=== PATIENT | male | born 1960 | race Caucasian/White ===

== ENCOUNTER 2017-02-25 13:40 | Inpatient (IN) | payer OTHER ==
[~2017-02-25] VITALS: Ht 182.9 cm; Wt 115.7 kg
[~2017-02-25 13:40] MED LIST: NORCO 10-325 T1 EACH PO; PERCOCET 7.5-31 EACH PO
--- NOTE | 2017-03-15 15:25 | NUR ---
PREADMIT PT CARE NOTE THIS IS A 56 YEAR OLD MALE THAT ISS EMPLOYED. HE STATES HE IS SCHEDULED FOR A RIGHT TOTAL KNEE REPLACEMENT ON 03/25/[address] DILEEP NATHAN. LIVES IN ONE STORY HOME WITH . HOUSE WITH A COUPLE OF SUNKEN ROOMS (2 STEPS) INTO THEM. PT HAS A TUB/SHOWER COMBINATION, THAT HAS THE HANDICAPPED BARS THROUGHOUT THE BATHROOM. SAYS HE IS GOING TO GO TO [facility] TO OBTAIN A FRONT WHEELED WALKER AND A SEAT FOR THE SHOWER. STATES HE WENT TO [facility] FOR A PREOP VISIT. HE DENIES FURTHER QUESTIONS, OR CONCERNS AT THIS TIME. OTHER THAN THE STATEMENT THAT HE DOES NOT WANT A MALE NURSE OR THERAPIST. [facility] SELECTION CONSULTANTTOE PULLER CASE MANAGEMENT
--- NOTE | 2017-03-25 08:59 | NUR ---
03/25/17 0859 Erum Womack 0855 TO PACU, RESP EVEN UNLABORED. DENIES PAIN. 0859 ABLE TO MOVE BILAT TOES, MILD SENSATION TO L1.
--- NOTE | 2017-03-25 09:42 | NUR ---
PATIENT ARRIVES FROM PACU AND IS ALERT AND ORIENTED. PATIENT HAD A TOTAL RIGHT KNEE SURGERY. PATIENT CAN MOVE BOTH FEET AND HAS SENSATION IN BOTH FEET. PATIENT DENIES PAIN AT THIS TIME, BUT NOTES A SLIGHT PRESSURE LIKE FEELING AROUND THE KNEE. PATIENT HAS WANDER WRAP WITH CRYO CUFF. CONTINUE TO MONITOR CLOSELY. PT IREMAINS ON 2 L NC AND SP02 IS 92 %.
--- NOTE | 2017-03-25 11:54 | NUR ---
PATIENT ABLE TO TOLERATE EATING JELLO, PUDDING, AND BROTH WITHOUT DIFFICULTY. PT NOW RECEIVING HIS LUNCH TRAY. PT'S AT BEDSIDE. CRYO CUFF REMAINS ON. PT'S PAIN UNDER CONTROL.
--- NOTE | 2017-03-25 11:56 | NUR ---
RN with patient. Fresh ice water given. No needs at this time.
--- NOTE | 2017-03-25 14:00 | NUR ---
PATIENT RESTING IN BED. FRESH ICE WATER GIVEN. NO OTHER NEEDS AT THIS TIME. ASKED PATIENT TO TRY TO URNINATE AND TO CALL WHEN HE IS DONE TRYING. CALL BUTTON IN REACH.
--- NOTE | 2017-03-25 14:19 | NUR ---
PATIENT ATTEMTPS TO VOID AND ONLY ABLE TO VOID A FEW DRIBBLES OF URINE. PATIENT EDUCATED ON THE FACT THAT HE LIKELY NOW HAS AN OVEREXTENDED BLADDER AND WILL LIKELY NEED A MCGOVERN CATHETER FOR THE REST OF TODAY AND WILL BE TAKEN OUT IN THE AM. PATIENT WANTING TO TRY TO VOID ONE MORE TIME AND ALLOWED TO, BUT PLANNING ON PLACING MCGOVERN SOON. CONTINUE TO MONITOR.
--- NOTE | 2017-03-25 15:03 | NUR ---
MCGOVERN CATH PLACED AT 1500 AND DRAINED FOR 1250 ML. CONTINUE TO MONITOR.
--- NOTE | 2017-03-25 15:40 | NUR ---
DR. NATHAN CALLED TO UPDATE ON PATIENT'S INABILITY TO VOID AND MCGOVERN PLACEMENT. NO FURTHER ORDERS REC'D AT THIS TIME. PT RESTING COMFORABLY IN BED AND WAITNG FOR HIS DINNER. CONTINUE TO MONITOR.
--- NOTE | 2017-03-25 16:30 | NUR ---
RT WORKING WITH PATIENT IN ROOM.
--- NOTE | 2017-03-25 17:21 | NUR ---
PATIENT RESTING IN BED. FRESH ICE WATER GIVEN. ICE IN CRYO. CALL BUTTON IN REACH. NO OTHER NEEDS AT THIS TIME
--- NOTE | 2017-03-25 18:24 | NUR ---
PATIENT RESTING IN BED AT THIS TIME WITH HIS AND OTHER VISITOR AT BEDSIDE. PT DENIES PAIN. MCGOVERN EMPTIED FOR ADDITIONAL 300 ML. IVF CONTINUE AT 125 ML/HR. CYRO CUFF AND SCDs REMAIN ON.
--- NOTE | 2017-03-25 19:08 | NUR ---
BEDSIDE REPORT GIVEN TO JOSE LUIS WILEY. PT REMAINS ALERT, ORIENTED, AND PAIN FREE AT THIS TIME. PT INSTRUCTED TO CONTINUE USING CALL LIGHT.
--- NOTE | 2017-03-25 20:10 | NUR ---
PT LAYING IN BED, WATCHING TV, NO APPARENT DISTRESS, PLEASENT DEMEANOR. TEDS, SCD'S, CRYOCUFF, AND HEEL PROTECTORS IN PLACE. CONTINUOUS PULSE OXIMETER IN PLACE, AND INCENTIVE SPIROMETER AT BEDSIDE WHICH PT REPORTS USING TODAY. RATES PAIN AT 0/10, "THERE IS NONE." GAVE SCHEDULED PAIN MEDICATIONS. DRESSING TO RIGHT KNEE IS CLEAN DRY AND INTACT, NO SHADOWING AT THIS TIME. PT HAS BEEN USING CALL LIGHT APPROPRIATLY. DENIES NAUSEA. PT FRIENDLY AND COOPERATIVE. GAVE FRESH ICE WATER. CALL LIGHT IN REACH. NO NEEDS AT THIS TIME.
--- NOTE | 2017-03-25 21:43 | NUR ---
PT RESTING QUIELTY, NO NEEDS AT THIS TIME. CALL LIGHT IN REACH.
--- NOTE | 2017-03-25 23:42 | NUR ---
PT LAYING IN BED, WATCHING TV, LIGHTS ON IN ROOM. PT REPORTS THAT HE IS HAVING "A LITTLE BIT," OF PAIN. RATES PAIN AT 3-4/10, GAVE NORCO FOR PAIN. PT ALSO COMPLAINS OF PRURITIS, "I AM SO ITCHY ON MY STOMACK AND MY SIDE," GAVE BENEDRYL FOR ITCHING. TEDS, SCD'S, HEEL PROTECTORS, AND CRYO CUFF IN PLACE. RE-FILLED CRYO CUFF WITH ICE. GAVE FRESH ICE WATER. PT HAS CALL LIGHT. DENIES FURTHER NEEDS.
--- NOTE | 2017-03-26 00:12 | NUR ---
pt continues to complain of pruritis, states "its a little better, but its still itchy." gave benedryl 12.5mg iv for itching.
--- NOTE | 2017-03-26 02:30 | NUR ---
PT LAYING IN BED, WATCHING TV. PT REPORTS THAT HE HAS BEEN SLEEPING ON AND OFF, STATES "LUIS BEEN DOZING OFF AND ON." PT REPORTS PRURITIS IS "BETTER." RATES PAIN AT 3/10, STATES "ITS BARELY THERE." GAVE SCHEDULED PAIN MEDICATIONS. PT SBP 95. RN MANUALLY RE-ASSESSED, SBP 99; PT ASYMPTOMATIC, NO DIZZINESS, NO NAUSEA. GAVE FRESH ICE WATER. NO FURTHER NEEDS AT THIS TIME.
--- NOTE | 2017-03-26 03:34 | NUR ---
PT RESTING QUIELTY. O2 SAT 97% ON RA. LIGHTS AND TV OFF IN ROOM.
--- NOTE | 2017-03-26 04:59 | NUR ---
resting quielty. lights and tv off in room.
--- NOTE | 2017-03-26 05:40 | NUR ---
PT PRURITIS IS "BETTER" ACCORDING TO PT, BUT HE REQUESTED "ONE MORE" DOSE OF BENEDRYL, GAVE BENEDRYL 12.5MG IV FOR ITCHING. RATES PAIN AT 3/10, GAVE NORCO FOR PAIN. DC'D FROILAN JASON, PT TOLERATED WELL. PT USING INCENTIVE SPIROMETER THIS MORNING ALSO, GAVE MORE EDUCATION. PT HAS NO FURTHER NEEDS AT THIS TIME. CALL LIGHT IN REACH.
--- NOTE | 2017-03-26 05:40 | NUR ---
CRYO CUFF REFILLED.
--- NOTE | 2017-03-26 06:09 | NUR ---
PT CALLING OUT FROM BED. ASSISTED PT UP TO RESTROOM TO VOID, CHANGED ATTENDS. PT BACK IN BED. PT REMAINS CONFUSED AND ARGUMENTATIVE. GAVE DIET LEMON MILLE LACS SODA PER PT REQUEST. CALL LIGHT IN REACH. BED ALARM ACTIVE FOR SAFETY.
--- NOTE | 2017-03-26 06:26 | NUR ---
PT HAD UNEVENTFUL NIGHT, SLEPT MAJORITY OF SHIFT. DRESSING CLEAN DRY AND INTACT. ALL DR NATHAN ORDERS IN PLACE. PAIN WELL CONTROLLED WITH SCHEDULED AND PRN PAIN MEDICATIONS. BENEDRYL GIVEN X3 FOR PRURITIS, PT STATES "ITS BETTER," THIS MORNING. ALERT AND ORIENTED X4, COOPERATIVE, PLEASENT DEMEANOR. FROILAN DC'D THIS AM. SBP RAN IN THE UPPER 90'S OVERNIGHT, DR NATHAN NOTIFIED, OKAY TO LEAVE FLUIDS RUNNING.
--- NOTE | 2017-03-26 07:01 | NUR ---
PT RATES PAIN AT 4/10 STILL, STATES "THAT LAST PILL DIDNT REALLY DO THAT MUCH." GAVE SECOND NORCO FOR PAIN. PT ALSO STATES "ITS TOLERABLE, I JUST DONT WANT IT TO GET OUT OF CONTROL. IV INFUSING FLUIDS WNL.
--- NOTE | 2017-03-26 08:00 | NUR ---
PATIENT FROM BED TO CHAIR WITH ONE PERSON ASSIST WITH FWW. BED BATH DONE. ORAL CARE DONE. LINENES CHANGED. FRESH ICE WATER GIVEN. ICE IN CRYO. CALL BUTTON IN REACH. NO OTHER NEEDS AT THIS TIME.
--- NOTE | 2017-03-26 08:09 | OR ---
[facility] [address], [place] [address] Signed DATE OF OPERATION: 03/25/2017 SURGEON: Clem Hernandez MD PREOPERATIVE DIAGNOSIS: Severe degenerative joint disease, right knee. POSTOPERATIVE DIAGNOSIS: Severe degenerative joint disease, right knee. PROCEDURE PERFORMED: Right total knee arthroplasty with computer navigation. ASSISTANTS: 1. REINALDO Marrero. 2. IHSAN Duarte. Audra was present for the entire surgery and was critical for positioning, retraction and wound closure. ANESTHESIA: Spinal. BLOOD LOSS: Minimal. TOURNIQUET TIME: Approximately 77 minutes. IMPLANTS: [place] size 7 triathlon with 13 mm insert and 35 mm patella. BRIEF HISTORY: Dania is a 56-year-old gentleman with multiple operations in the past on his knee. He has developed severe osteoarthritis with large loose bodies posteriorly. Risks, benefits, and alternatives of operation were discussed after he failed conservative treatment. He elected to proceed. DESCRIPTION OF PROCEDURE: Once consent was obtained, he was taken to the operating room. After adequate Electronically Signed By: CLEM HERNANDEZ MD 03/26/17 0809 PATIENT NAME: DANIA STEPHENS OPERATIVE REPORT DATE OF : 58 PHYSICIAN: CLEM HERNANDEZ MD REPORT #: [id number] REPORT IS CONFIDENTIAL AND NOT TO BE RELEASED WITHOUT AUTHORIZATION [facility] [address] [place] [id number] Signed anesthesia, he was placed on operating room table, all downside pressure points well padded. A well-padded proximal thigh tourniquet was placed and the leg was prepped and draped in a standard sterile fashion. The leg was exsanguinated using Esmarch bandage. Tourniquet inflated to 250 mmHg. A standard curved incision anteriorly incorporated the most medial prior incision. This was carried through skin and subcutaneous tissue. Median parapatellar arthrotomy was performed. The infrapatellar fat pad was excised. The MCL was elevated to sleeve around the posterior medial corner. Anterior horns of the menisci were transected. There was a large loose body anteriorly that was removed. The knee was then flexed. The ACL was already completely gone. The navigation guide was pinned to the distal femur and the femur was registered with the computer. The distal femoral cutting guide was then pinned in neutral alignment and distal femoral cut was made. The distal femur was sized to 7. The AP cutting block was pinned in neutral alignment and the anterior-posterior chamfer cuts were made and all bone piece was removed as well as osteophytes. The attention was turned to proximal tibia. The navigation guide was again pinned and the tibia was registered with the computer. The cutting block was then pinned in neutral alignment and the distal proximal tibial cut was made with care taken to protect the patellar tendon and MCL. The bone was removed. The posterior osteophytes and loose bodies were removed. Three large loose bodies probably 2 to 3 cm in diameter removed from medial and lateral aspects. A small posterior release was performed. The flexion-extension gaps were sized, found to be symmetric at 13 mm. The trials were positioned and he was taken through range of motion and found to be stable. Patella was cut, sized and drilled for 35 patella. Again, all osteophytes were removed. The knee was flexed. The tibia was finished using the keel punch. The bone surfaces were pulse lavaged, packed with dry Ray-Hitesh. The cement was mixed and reached proper consistency. The antibiotic cement was placed on all implants and all bone surfaces. Tibia was impacted in position first and any remaining cement was removed. The polyethylene was snapped into position and the femur was impacted. Again, all excess cement was removed. The knee was extended and nicely loaded. The patella was clamped and again any excess cement was removed. The cement was allowed to harden. Once it hardened sufficiently, the knee was flexed and the remaining cement was removed using osteotomes. The knee was pulse lavaged at intervals throughout the procedure. A total of 3 L antibiotic irrigation was used. The periarticular soft tissues were injected with 100 mL ropivacaine and Toradol mixture. The arthrotomy was then closed using #2 Stratafix, subcutaneous tissue with #1 Stratafix and freddie for the skin. The knee was dressed with Mepilex Ag dressing, ABD and Altaf wrap. He tolerated the procedure well. All sponge, needle, and instrument counts were correct. Electronically Signed By: CLEM HERNANDEZ MD 03/26/17 0809 PATIENT NAME: DANIA STEPHENS OPERATIVE REPORT DATE OF : 58 PHYSICIAN: CLEM HERNANDEZ MD REPORT #: [id number] REPORT IS CONFIDENTIAL AND NOT TO BE RELEASED WITHOUT AUTHORIZATION [address] [address] Signed Clem Hernandez MD BA/MODL /[id number] Electronically Signed By: CLEM HERNANDEZ MD 03/26/17 0809 PATIENT NAME: DANIA STEPHENS OPERATIVE REPORT DATE OF : 58 PHYSICIAN: CLEM HERNANDEZ MD REPORT #: [id number] REPORT IS CONFIDENTIAL AND NOT TO BE RELEASED WITHOUT AUTHORIZATION
--- NOTE | 2017-03-26 09:09 | NUR ---
PT PAIN WELL CONTROLLED. 1PA WITH FWW TO BATHROOM THIS MORNING. DUE TO VOID. PASSING FLATUS. NO BM. MIRALAX GIVEN SCHEDULED. NO COMPLAINTS THIS MORNING. DRESSING C/D/I. NO DRAINAGE NOTED. CRYOCUFF IN PLACE.
--- NOTE | 2017-03-26 09:45 | NUR ---
PT ABLE TO URINATE 200ML INTO TOILET HAT. BACK TO BED NOW WITH CRYOCUFF AND SCDs IN PLACE. CALL LIGHT IN REACH.
--- NOTE | 2017-03-26 10:05 | NUR ---
PATIENT RESTING IN BE TALKING ON CELL PHONE FRESH ICE WATER GIVEN. CALL BUTTON IN REACH.
--- NOTE | 2017-03-26 11:59 | NUR ---
PATIENT RESTING IN BED WATCHING TV. JUST FINISHED LUNCH. ICE IN CYRO FRESH ICE WATER GIVEN. NO OTHER NEEDS AT THIS TIME. CALL BUTTON IN REACH.
--- NOTE | 2017-03-26 13:35 | NUR ---
PATIENT RESTING IN BED PLAYING ON CELL PHONE. CALL BUTTON IN REACH. NO OTHER NEEDS AT THIS TIME.
--- NOTE | 2017-03-26 14:28 | NUR ---
PT WATCHING TV, RESTING IN BED. HE WELCOMED ME IN, HAD GOOD CONVERSATION. HIS PAIN SEEMS WELL UNDER CONTROL. HE HAS JUST BATTLED CANCER, ALONG WITH HIS . HE STATED GOD IS TAKING CARE OF THEM, I AGREED. EXTENDED A BLESSING, WILL CONTINUE TO FOLLOW
--- NOTE | 2017-03-26 15:00 | NUR ---
PATIENT WORKING WITH PT.
--- NOTE | 2017-03-26 15:17 | NUR ---
PATIENT PULLED CALL CORD IN BATHROOM WHEN THIS GRADE SCHOOL TEACHER ENTERED THE ROOM THE PATIENT WAS ALREADY UP AND HAD WALKED TO THE BATHROOM DOOR WITH NO ASSIST. THIS GRADE SCHOOL TEACHER REMINDED HIM THAT HE IS TO NOT GET UP AND WALK WITH OUT AN EMPLOYEE ASSISTING HIM. THE PATIENT STATED THAT WE HAVE BEEN TEACHING HIM TO GET UP AND DOWN ON HIS OWN. I REMINDED HIM THAT HAS BEEN WITH ONE OF THE EMPLOYEES NEXT TO HIM. THE PATIENT STATED THAT HE WILL GET UP ON HIS OWN. THIS GRADE SCHOOL TEACHER TOLD HIM IF HE CONTINUES TO GET UP WITH OUT OUR ASSISTANCE THAT WE WILL HAVE TO MOVE HIM TO A CLOSER ROOM WHERE WE CAN SEE HIM. THE PATIENT STATED THAT HE "WILL REFUSE TO MOVE TO ANOTHER ROOM". THIS GRADE SCHOOL TEACHER TOLD HIM THAT ITS OUR POLICY FOR HIM TO HAVE ASSISTANCE WHILE WALKING. PATIENT ONCE AGAIN STATED THAT HE WILL REFUSED. PATIENT BACK TO BED. CRYO ON. BED ALARM ON. CHARGE NURSE NOTIFIED.
--- NOTE | 2017-03-26 15:27 | NUR ---
CHARGE NURSE IN TO TALK TO PATIENT.
--- NOTE | 2017-03-26 15:29 | NUR ---
PATIENT REFUSES ASSISTANCE IN BATHROOM. CLARIFIED WITH PATIENT, "I DON'T NEED HELP, I DON'T WANT PEOPLE LOOKING AT MY NAKED BUTT. I DON'T WANT ANYONE IN THE BATHROOM WITH ME, OR I'LL CHECK MYSELF OUT OF HERE." LET PATIENT KNOW THAT I WOULD DISCUSS WITH DR. NATHAN, THAT IT IS NOT SAFE FOR PATIENT TO BE STANDING IN BATHROOM ALONE. PATIENT AWARE THAT HE WOULD BE MOVED CLOSE TO NURSE STATION IN THE EVENT OF A FALL. BED ALARM IS CURRENTLY ON. MESSAGE LEFT ON DR. NATHAN CELL PHONE.
--- NOTE | 2017-03-26 16:41 | NUR ---
educated patient on safety percautions taken to prevent falls. PT FOUND TO BE STANDING AND AMBULATING TO BED AFTER PULLING CALL MCCALLUM (BEFORE STAFF CAN COME TO ROOM TO ASSIST HIM). EDUCATED ON REASONS FOR POLICY ON CALLING AND WAITING FOR ASSISTANCE DURING TRANSFERS. ASSURED PT WE WOULD TRY TO PROVIDE PRIVACY DURING BATHROOM USE AND MINIMIZE EXPOSURE. SAFETY IS OF HIGHEST CONCERN. PT UNDERSTOOD EDUCATION AND UNDERSTANDS INSTRUCTIONS ON HOW TO CALL FOR ASSISTANCE AND WAITING FOR STAFF TO HELP.
--- NOTE | 2017-03-26 16:55 | NUR ---
RN ASSISTING PATIENT FROM BATHROOM.
--- NOTE | 2017-03-26 18:00 | NUR ---
REGUALR DIET. SBA WITH FWW. CALLS APPROPRIATELY. EDUCATED ON IMPORTANCE OF HAVING SBA FOR TRANSFERS. WORKING WITH PHYSICAL THERAPY. NORCO X2. OXY/TORADOL SCHEDULED. URINATING WELL TODAY. IMPROVING IN ABILITY TO EMPTY BLADDER EASIER. D5NS+20KCL @ 125 INFUSING PER MD WISHES. MEPILEX/WANDER WRAP IN PLACE. C/D/I. CRYOCUFF ON. EXPECT DISCHARGE TOMORROW.
--- NOTE | 2017-03-26 18:20 | NUR ---
PATIENT RESTING IN BED. PATIENT APLOGIZED TO ME FOR REFUSING TO CALL FOR HELP EARLIER TODAY. CALL BUTTON IN REACH. ICE WATER GIVEN. ICE IN CRYO. NO OTHER NEEDS AT THIS TIME.
--- NOTE | 2017-03-26 19:38 | NUR ---
SPOKE WITH DR NATHAN IN REGARDS TO PT'S INCREASED PAIN TODAY. INCREASED OXYCODONE DOSE. ALSO, OKAY TO DC FLUIDS.
--- NOTE | 2017-03-26 20:48 | NUR ---
PT UP TO BATHROOM USING FWW AND STANDBY ASSIST. PT AMBULATING WELL AND STEADY ON FEET. PT BACK IN BED, TEDS, SCD'S, CRYO CUFF, HEEL PROTECTORS ALL IN PLACE. DRESSING TO RIGHT KNEE IS CLEAN DRY AND INTACT, NO SHADOWING VISIBLE. PT RATES PAIN AT 7/10, GAVE SCHEDULED PAIN MEDICATIONS, WILL MONITOR PAIN CLOSELY. DC'D FLUIDS, IV WNL AND FLUSHES WELL. FRESH ICE WATER AT BEDSIDE. CALL LIGHT IN REACH. NO FURTHER NEEDS.
--- NOTE | 2017-03-26 21:39 | NUR ---
PT CONTINUES TO COMPLAIN OF 7/10 PAIN, GAVE NORCO 2 TABS FOR PAIN. PT UP TO BATHROOM THEN BACK TO BED. ALL DR NATHAN ORDERS IN PLACE. PT PLEASENT, VERY TALKATIVE. NO FURTHER NEEDS. CALL LIGHT IN REACH.
--- NOTE | 2017-03-26 23:03 | NUR ---
PT UP TO BATHROOM AND THEN BACK IN BED, CONTINUES TO DO WELL WITH FWW AND STANDBY ASSIST. PT CALLING APPROPRIATLY. RATES PAIN AT 5/10, STATES "ITS GETTING BETTER NOW." PT HAS NO FURTHER NEEDS. CALL LIGHT IN REACH.
--- NOTE | 2017-03-26 23:16 | NUR ---
PATIENT CALLED TO USE THE BATHROOM. JUST NEED TO UNHOOKED SCDS, CRYO AND HEEL PROTECTOR. PATIENT WILL CALL WHEN HE IS DONE. PATIENT CALLED, NURSE JOSE LUIS WILEY HELPED PATIENT BACK TO BED.
--- NOTE | 2017-03-27 00:28 | NUR ---
PATIENT CALLED. WENT TO USE THE BATHROOM. PATIENT IS BACK IN BED. REFILLED CRYO AND ICE WATER.
--- NOTE | 2017-03-27 01:05 | NUR ---
PT BACK IN BED FROM BATHROOM. RATES PAIN AT 6/10, GAVE NORCO 2 TABS FOR PAIN.
--- NOTE | 2017-03-27 02:09 | NUR ---
pt reports that his pain is unchanged since the norco, continues to rate pain at 6/10. gave scheduled pain medications for pain.
--- NOTE | 2017-03-27 02:20 | NUR ---
DR NATHAN NOTIFIED OF PT'S UNCONTROLED PAIN. NEW PAIN MEDICATION ORDERS RECIEVED.
--- NOTE | 2017-03-27 03:11 | NUR ---
pt reports pain is "a little less intense," but continues to rate pain at 6/10. states "i just cant get it in a comfortable position." assisted pt move up in bed, and adjusted head of bed. also gave dilaudid po for pain. cryo cuff in place and is full of ice. call light in reach.
--- NOTE | 2017-03-27 03:47 | NUR ---
pt laying in bed, lights out for the first time tonight. pt still awake watching tv. no needs at this time. call light in reach.
--- NOTE | 2017-03-27 04:46 | NUR ---
pt appears to be sleeping. rr wnl and unlabored and he is snoring. lights out, tv on in room.
--- NOTE | 2017-03-27 05:32 | NUR ---
PT REPORTS PAIN AT "4-5"/10, HE ALSO STATES "ITS TOLERABLE NOW, AND I WAS ABLE TO GET SOME SLEEP." PT LAYING IN BED, WATCHING TV. NO DISTRESS AT THIS TIME.
--- NOTE | 2017-03-27 05:33 | NUR ---
PT PAIN DIFFICULT TO GET UNDER CONTROL FIRST HALF OF SHIFT, NEW PAIN MEDICATIONS ORDERED. PAIN "TOLERABLE" PER PT, AFTER DILAUDID PRN ADDED. PT ABLE TO SLEEP LATE SHIFT. UP TO BATHROOM TO VOID SEVERAL TIMES. PT VERY STEADY ON FEET, USES FWW WELL. PT COOPERATIVE. ALERT AND ORIENTED X4. DRESSING CLEAN DRY AND INTACT, NO SHADOWING. ALL DR NATHAN ORDERS IN PLACE OVER NIGHT. SL WNL AND FLUSHES WELL. USES CALL LIGHT APPROPRIATLY.
--- NOTE | 2017-03-27 06:53 | NUR ---
pt reports pain is feeling more tolerable. rates pain at 6/10 at the moment. gave dilaudid po for pain. re-filled cryo cuff with ice.
--- NOTE | 2017-03-27 07:10 | NUR ---
RN TO ASSIST PATIENT FROM BED TO BATHROOM.
--- NOTE | 2017-03-27 08:05 | NUR ---
PT AWAKE IN BED, EATING SMALL AMOUNT OF BREAKFAST. REPORTS THAT HE HASN'T NOTICED MUCH OF A DIFFERENCE AFTER ZOFRAN ADMINISTRATION BUT THAT HE IS "OK". RATING RIGHT KNEE PAIN 5-6/10, MEDICATED WITH SCHEDULED OXY AND TORADOL. RIGHT KNEE DRESSING CDI, NO SHADOWING NOTED. CRYO CUFF, JANETH HOSE, AND SCD'S IN PLACE. PT ALERT AND ORIENTED. IV SL, FLUSHES WELL. CALL LIGHT WITHIN REACH.
[2017-03-27] MEDS ORDERED: HYDROMORPHONE HC4 MG PO (08:28)
[2017-03-27] MEDS ORDERED: XARELTO10 MG PO (08:28)
[2017-03-27] MEDS ORDERED: TAMSULOSIN HCL0.4 MG PO (08:28)
[2017-03-27] MEDS ORDERED: MIRALAX17 GM PO (08:29)
[2017-03-27] MEDS ORDERED: OXYCODONE HCL5 MG PO (08:29)
--- NOTE | 2017-03-27 09:15 | NUR ---
DRESSING REMOVED BY DR. NATHAN. SITE WELL APPROXIMATED, OLGA WNL. CLEAN AND DRY. REDRESSED WITH MEPILEX AND WANDER WRAP PER DR. NATHAN.
--- NOTE | 2017-03-27 09:37 | NUR ---
IV DC'D, SITE WNL WITHOUT REDNESS OR INFLAMMATION. PT GIVEN DC INSTRUCTIONS VERBALLY AND WRITTEN. PT FINISHED DRESSING INDEPENDENTLY. PERSONAL BELONGINGS GATHERED. PT WAITING FOR AND PHARMACY CONSULT.
--- NOTE | 2017-03-27 16:50 | NUR ---
ORDER FOR OUTPATIENT THERAPY/CLINICALS FAXED TO [facility]. FAX CONFIRMATION RECEIVED.
--- NOTE | 2017-04-01 07:03 | DS ---
[facility] [address] [place], [place] [address] Signed ADMISSION DATE: 03/25/2017 DISCHARGE DATE: 03/27/2017 ADMISSION DIAGNOSIS: Degenerative joint disease, right knee. DISCHARGE DIAGNOSIS: Degenerative joint disease, right knee. PROCEDURE PERFORMED: Right total knee arthroplasty. BRIEF HISTORY: Dania is a 56-year-old gentleman with progressive worsening of osteoarthritis of his knee. He has had undergone nonoperative without substantial relief. The risks, benefits, and alternatives of the operative treatment were discussed with him, and he elected to proceed. HOSPITAL COURSE: Once the consent was obtained, he was taken to the operating room. After adequate anesthesia, he underwent the above-named procedure and was taken to the recovery room, subsequently orthopedic floor. Initially, he was placed on oxycodone 5 and [place] for pain relief. This proved to be inadequate once the block wore off, and he was switched to oxycodone 7.5 and Dilaudid 4-8 mg. He tolerated this well. He was seen by Physical Therapy, able to ambulate him down the hallway, up and down stairs by the day of discharge. He will be discharged to home with outpatient physical therapy and current medications including Xarelto 10 mg p.o. daily, which he was kept on in the hospital in addition to SCDs and TEDs. He will follow up with me in 10-14 days or sooner should he have problems. Clem Hernandez MD BA/POLOL Electronically Signed By: CLEM HERNANDEZ MD 04/01/17 0703 PATIENT NAME: DANIA STEPHENS DISCHARGE SUMMARY DATE OF : 58 PHYSICIAN: CLEM HERNANDEZ MD REPORT #: [id number] REPORT IS CONFIDENTIAL AND NOT TO BE RELEASED WITHOUT AUTHORIZATION [facility] [address] [place] [id number] Signed /[id number] Electronically Signed By: CLEM HERNANDEZ MD 04/01/17 0703 PATIENT NAME: DANIA STEPHENS DISCHARGE SUMMARY DATE OF : 58 PHYSICIAN: CLEM HERNANDEZ MD REPORT #: [id number] REPORT IS CONFIDENTIAL AND NOT TO BE RELEASED WITHOUT AUTHORIZATION
== END 2017-03-27 09:45 | disposition home or self-care (01) | DRG 470 ==
LOC: DSVR 03-25 05:40 → MS 03-25 06:45
PROVIDERS: ADMIT Specialist
PROC: 3E0T3BZ Introduction of Anesthetic Agent into Peripheral Nerves and Plexi, Percutaneous Approach (ICD-10-PCS; 2017-03-25)
PROC: 0SRC0J9 Replacement of Right Knee Joint with Synthetic Substitute, Cemented, Open Approach (ICD-10-PCS; principal; 2017-03-25 06:45)
DX: M17.0 Bilateral primary osteoarthritis of knee (principal); I10 Essential (primary) hypertension; Z85.72 Personal history of non-Hodgkin lymphomas
CPT/HCPCS: 01402; 36415; 64447; 76942; 80048; 85025; 94762; 97110; 97116; 97161; 97530; C1713; C1776; J0690; J1100; J1200; J1885; J2250; J2274; J2704; J2795; J3010; J7120

== ENCOUNTER 2017-12-26 10:45 | Day surgery (SDC) | payer OTHER ==
[~2017-12-26] VITALS: Ht 182.9 cm; Wt 113.8 kg
[~2017-12-26 10:45] MED LIST changes: +HYDROMORPHONE HC4 MG PO; +MIRALAX17 GM PO; +OXYCODONE HCL5 MG PO; +TAMSULOSIN HCL0.4 MG PO; +XARELTO10 MG PO
[2017-12-26] MEDS ORDERED: PRILOSEC OTC20 MG PO (11:04)
--- NOTE | 2017-12-26 12:48 | NUR ---
12/26/17 Nat8 Nichol Quintanilla 1243-PATIENT ARRIVED TO PACU ON 3L NC WEANED TO 2L O2 SAT 99% PATIENT DROWSY AWAKE DENIES PAIN OR NAUSEA. ABDOMEN ROUND AND SOFT. LAYING LEFT LATERAL RR EVEN.
--- NOTE | 2017-12-28 10:08 | OR ---
[facility] [address], [place] [address] Signed DATE OF OPERATION: 12/26/2017 SURGEON: Geoffrey Joshi MD PREOPERATIVE DIAGNOSES: 1. Persisting progressing dysphagia without history of clinical reflux symptoms. 2. Past medical history of lymphoma (in remission). 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 PROCEDURE: Esophagogastroduodenoscopy with biopsy. ANESTHESIA: Intravenous sedation of fentanyl 100 mcg, Versed 6 mg. 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 He is a patient of Dr. Amaya. He is noted to have history of B-cell lymphoma treated by Dr. Maurer primarily with chemotherapy and is in remission from that. He began having dysphagia in the past few months without associated hematemesis. He does not have a dominant history of gastroesophageal reflux. He has never undergone upper endoscopy in the past. He did have a colonoscopy in June. At that time, was asymptomatic as regards to dysphagia particularly. He is admitted at this time to undergo upper endoscopy to better characterize the source of his problem with dysphagia. He understands the risks of bleeding, infection, and perforation. FINDINGS: Bulky semi pedunculated neoplasm was noted at the distal esophagus. The tumor was friable and easily made to bleed. There were several submucosal nodules in the distal esophagus and one submucosal and more proximal esophagus at 26 cm. Submucosal nodule had a yellowish tinge to it. It is unlikely the central portion of the submucosal nodule was biopsied. The other lesion was biopsied multiple as well likely consistent with adenocarcinoma, though the possibility of esophageal lymphoma, however, rare remains a a consideration. The stomach and duodenum were normal. DESCRIPTION OF PROCEDURE: The patient was brought to the endoscopy suite given topical Hurricaine spray, Electronically Signed By: GEOFFREY JOSHI MD 12/28/17 1008 PATIENT NAME: DANIA STEPHENS OPERATIVE REPORT DATE OF : 58 REPORT #: [id number] PHYSICIAN: GEOFFREY JOSHI MD PCP: CHARLOTTE AMAYA MD REPORT IS CONFIDENTIAL AND NOT TO BE RELEASED WITHOUT AUTHORIZATION [facility] [address], [place] [address] Signed hypopharyngeal anesthesia, and placed in lateral decubitus position. He was given intravenous sedation to the point of slurred speech and nystagmus. Full cardiopulmonary monitoring was maintained. A bite block was placed. An Olympus video upper endoscope was passed in the hypopharynx. The vocal cords appeared normal. Scope was advanced to the esophagus. Passing down the esophagus immediately noted was a large relatively smooth somewhat mobile bulky friable neoplasm. The scope was carefully manipulated beyond this to other areas equally friable and less bulky in the distal esophagus. There was no sign of complete obstruction. The scope was passed into the stomach, which was insufflated with air. The stomach itself appeared normal. Rugal folds were normal as was the antrum. Retroflexed view showed no sign of neoplasm at the GE junction on the gastric side. The scope was reoriented and passed ultimately into the pylorus and into the duodenum, which was normal. The scope was then withdrawn and carefully withdrawn to the distal esophagus. Friable nonpedunculated, but nevertheless highly suspicious tissue was noted in the distal esophagus extending from 38-36 cm. Biopsies were taken of payroll representative portions. There was independent submucosal nodularity also consistent with malignancy as well. These areas were biopsied. The scope was then withdrawn further to what appeared to be normal esophagus and then again appeared a submucosal nodule at 26 cm, this with thin overlying epithelium and a somewhat kevin appearing submucosal lesion. Biopsies were taken of this lesion, though I doubt the central portion of that nodule was actually biopsied. Careful withdrawal of scope showed no sign of abnormality in the hypopharyngeal area. The scope was removed. The patient was taken to recovery room in good condition. CONCLUDING DIAGNOSIS: Neoplasm of distal esophagus with submucosal extension more proximally at least to 26 cm. Uncertain if this represents adenocarcinoma (most likely) versus unusual recurrent lymphoma. PLAN: We will organize for CT scan of the chest and abdomen and review his most recent PET scan. Depending on the pathologic findings, treatment will be initiated based on clinical stage. Geoffrey Joshi MD /POLOL /[id number] Electronically Signed By: GEOFFREY JOSHI MD 12/28/17 1008 PATIENT NAME: DANIA STEPHENS OPERATIVE REPORT DATE OF : 58 REPORT #: [id number] PHYSICIAN: GEOFFREY JOSHI MD PCP: CHARLOTTE AMAYA MD REPORT IS CONFIDENTIAL AND NOT TO BE RELEASED WITHOUT AUTHORIZATION [address] [address] Signed cc: MD Luigi Montero MD Copies: CHARLOTTE AMAYA MD, ROBERT C MD ~ Electronically Signed By: GEOFFREY JOSHI MD 12/28/17 1008 PATIENT NAME: DANIA STEPHENS OPERATIVE REPORT DATE OF : 58 REPORT #: [id number] PHYSICIAN: GEOFFREY JOSHI MD PCP: CHARLOTTE AMAYA MD REPORT IS CONFIDENTIAL AND NOT TO BE RELEASED WITHOUT AUTHORIZATION
== END 2017-12-26 13:35 | disposition home or self-care (01) ==
LOC: DS 10:45 → OPS 10:45 → DS 12:00 → OPS 13:35
PROVIDERS: Surgery
PROC: 0DB38ZX Excision of Lower Esophagus, Via Natural or Artificial Opening Endoscopic, Diagnostic (ICD-10-PCS; principal; 2017-12-26 12:00)
DX: C15.5 Malignant neoplasm of lower third of esophagus (principal); K21.0 Gastro-esophageal reflux disease with esophagitis; N62 Hypertrophy of breast; K63.5 Polyp of colon; N64.89 Other specified disorders of breast; I10 Essential (primary) hypertension; M19.90 Unspecified osteoarthritis, unspecified site; Z85.72 Personal history of non-Hodgkin lymphomas
CPT/HCPCS: 99153; G0500; J0690; J2250; J3010; J7120

== ENCOUNTER 2018-01-09 09:00 | Observation (INO) | payer OTHER ==
[~2018-01-09] VITALS: Ht 182.9 cm; Wt 108.9 kg
--- OUTSIDE RECORDS SUMMARY | ~2018-01-09 | XMS | Clinical Summary ---
Demographics + + + | Address | [address] | | | [place] [address] | + + + | Home Phone | | + + + | Preferred Language | Unknown | + + + | Marital Status | | + + + | Hinduism Affiliation | 1038 | + + + | Race | Unknown | + + + | Ethnic Group | Unknown | + + + Author + + + | Author | [facility] | | | and [place] | + + + | Organization | [facility] | | | and [place] | + + + | Address | Unknown | + + + | Phone | Unavailable | + + + Support + + + + + | Name | Relationship | Address | Phone | + + + + + | Madeline Gomez | ECON | [address] | | | | | [place] | | | | | [address] | | + + + + + Care Team Providers + +------+ + | Care Railroad Car Painter Name | Role | Phone | + +------+ + | Kelvin Amaya | PP | | | MD | | | + +------+ + Allergies No Known Allergies Current Medications + + +--------+---------+------+------+-------+ | Prescription | Sig. | Disp. | Refills | Star | End | Statu | | | | | | t | Date | s | | | | | | Date | | | + + +--------+---------+------+------+-------+ | predniSONE | 5 tablets daily for | | 0 | 03/2 | | Activ | | (DELTASONE) 20 mg | five days | | | 0/20 | | e | | tablet | | | | 15 | | | + + +--------+---------+------+------+-------+ | ondansetron | 8 mg. BIB for two | | 0 | 02/0 | | Activ | | (ZOFRAN) 8 MG tablet | days after chemo | | | 6/20 | | e | | | | | | 15 | | | + + +--------+---------+------+------+-------+ | ondansetron | Take twice daily for | 20 | 0 | 05/2 | | Activ | | (ZOFRAN) 8 MG | two days after | tablet | | 2/20 | | e | | tabletIndications: | chemo; then one tab | | | 15 | | | | Diffuse large B cell | every eight hours as | | | | | | | lymphoma (HCC) | needed for nausea | | | | | | + + +--------+---------+------+------+-------+ | omeprazole | Take 20 mg by mouth | | | | | Activ | | (PRILOSEC) 20 mg | Daily. | | | | | e | | TBEC | | | | | | | + + +--------+---------+------+------+-------+ Active Problems + + + | Problem | Noted Date | + + + | Diffuse large B cell lymphoma (HCC) | 08/12/2014 | + + + + + | Overview: ACTIVE DIAGNOSIS: Stage IIIB Diffuse Large B-Cell | | Lymphoma, IPI score equals 3, high intermediate grade.1. | | Presentation on April 01, 2014 with a one-month history of | | diffuse abdominal pain, 30 pound weight loss, and drenching night | | sweats.2. CT scan of the chest, abdomen and pelvis at [facility] | | [facility] in [facility] on April 23, 2014 with | | contrast demonstrated extensive retroperitoneal lymphadenopathy | | seen around the celiac axis as well as pericaval and periaortic | | lymphadenopathy. In addition there was a hypoechoic mass seen in | | the splenic hilum consistent with an additional area of | | metastatic lymphadenopathy. There was a large peripherally | | calcified nonenhancing cyst in the spleen that is likely | | unrelated to the malignant process. CT scan did not identify any | | disease above the diaphragm.3. Bone marrow biopsy and aspiration | | on May 07, 2014 could not confirm the diagnosis of | | malignancy.4. CT-guided percutaneous retroperitoneal lymph node | | biopsy on June 01, 2014. Pathological specimen [id number] | | analyzed by Dr. Mani Martin at [facility] as high-grade | | lymphoma consistent with Teresa-Person virus positive diffuse | | large B-cell lymphoma. Subsequent outside review of the specimen | | at [facility] in [facility] confirmed that the | | neoplastic B cells were positive for variable expression of | | CD20.5. PET scan [facility] in [facility] on | | June 18, 2014 demonstrated malignant supraclavicular, | | mediastinal, retroperitoneal, and abdominal lymphadenopathy. | | There is no evidence of visceral metastatic disease. The | | calcified cyst in the spleen was not active.6. Status post | | placement of a left anterior chest Port-A-Cath by Dr. Aguilera | | Sherin.7. Initiation of R-CHOP chemotherapy with Neulasta for | | growth factor support on June 25, 2014.8. PET scan is [facility] | [facility] in [facility] on September 24, 2014 after 5 | | cycles of R-CHOP chemotherapy demonstrated persistent active | | disease although improved: "The spleen is slightly enlarged, but | | smaller compared to the prior study. In the hilum of the spleen, | | there is a small focus of abnormal radiotracer uptake with a | | maximum SUV of 9.28. There continues to be a conglomeration of | | nodules here, the largest measuring approximately 3 cm x 1.5 cm | | but these do not show abnormal uptake. Just anterior to the | | hilum, in the mesentery, a 17 mm x 13 mm nodule has diminished in | | size from 29 mm x 18 mm. The SUV max here is 10.92 compared to | | 31.16 on the prior study."(Dr. Nolvia Clay, [facility]).9. | | Cycle #6 RCHOP administered at [facility], | | [place], [place]. Last Assessment & Plan: Dania return to the | | [facility] in [place] | | [place] for his sixth cycle of our CHOP chemotherapy for his | | diffuse large B-cell lymphoma. Interval history is notable for | | the fact that Dania had a PET scan at [facility] in | | [facility] that demonstrated persistent active disease. | | Therefore, I recommended a total of 8 cycles of our CHOP | | chemotherapy with repeat cardiac echocardiogram prior to cycle | | #7.INFORMED CONSENT: The nature and character of the proposed | | treatment with Cycle #6 RCHOP and the anticipated results of the | | proposed treatment with Cycle #6 RCHOP;recognized alternative | | forms of treatment, including non-treatment; the risks benefits, | | and side effects of proposed treatment, alternative treatments | | and non-treatment were discussed with the patient who consents to | | proceed with treatment with Cycle #6 RCHOP. The treating | | provider has examined the patient and reviewed the diagnostic | | data, including laboratory data, and deems that it is safe and | | appropriate to proceed with treatment with Cycle #6 RCHOP. | + + Encounters +--------+ + + + + | Date | Type | Specialty | Care Team | Description | +--------+ + + + + | 01/08/ | Abstract | | Christine Dubose, | | | 2018 | | | CONSOLE ATTENDANT | | +--------+ + + + + from Last 3 Months Family History + + +------+ + | Medical History | Relation | Name | Comments | + + +------+ + | Heart attack | Father | | | + + +------+ + | Cancer | Mother | | Pancreatic | + + +------+ + + +------+ + + | Relation | Name | Status | Comments | + +------+ + + | Father | | | | | | | (Age | | | | | 60) | | + +------+ + + | Mother | | | | | | | (Age | | | | | 60) | | + +------+ + + Social History + + + +--------+ + | Tobacco Use | Types | Packs/Day | Years | Date | | | | | Used | | + + + +--------+ + | Former Smoker | Cigarettes | 1 | | Quit: 06/02/1993 | + + + +--------+ + + +---+---+---+ | Smokeless Tobacco: | | | | | Never Used | | | | + +---+---+---+ + + +---------+ + | Alcohol Use | Drinks/We | oz/Week | Comments | | | ek | | | + + +---------+ + | No | | | | + + +---------+ + + + + | Sex Assigned at | Date Recorded | | | | + + + | Not on file | | + + + Last Filed Vital Signs + + + + | Vital Sign | Reading | Time Taken | + + + + | Blood Pressure | 139/82 | 10/08/2014828 PDT | + + + + | Pulse | 88 | 10/08/2014828 PDT | + + + + | Temperature | 36.1 C (97 F) | 10/08/2014828 PDT | + + + + | Respiratory Rate | 16 | 08/26/2014757 PDT | + + + + | Oxygen Saturation | 99% | 10/08/2014828 PDT | + + + + | Inhaled Oxygen | - | - | | Concentration | | | + + + + | Weight | 98.2 kg (216 lb 7.9 | 10/08/2014828 PDT | | | oz) | | + + + + | Height | 182.9 cm (6') | 06/03/2014799 PST | + + + + | Body Mass Index | 29.36 | 10/08/2014 0829 PDT | + + + + Plan of Treatment +--------+ + + + + | Date | Type | Specialty | Care Team | Description | +--------+ + + + + | 01/13/ | Appointment | | | | | 2017 | | | | | +--------+ + + + + | 01/13/ | Appointment | | Ivan Barakat DO | | | 2017 | | | [address] | | | | | | [place] | | | | | | [address] | | | | | | | | +--------+ + + + + | 01/13/ | Hospital | | [facility], | | | 2017 | Encounter | | Luigi Clarke MD [address] | | | | | | [address] [place] | | | | | | [place] [address] | | | | | | [phone] | | | | | | | | +--------+ + + + + + + + + + | Health Maintenance | Due Date | Last Done | Comments | + + + + + | Hepatitis C | | | | | Screening | 9 | | | + + + + + | Vaccine: | | | | | Dtap/Tdap/Td (1 - | 8 | | | | Tdap) | | | | + + + + + | Vaccine: | | | | | Pneumococcal 19-64 | 8 | | | | Highest Risk (1 of 3 | | | | | - PCV13) | | | | + + + + + | Vaccine: Influenza | | | | | (#1) | 8 | | | + + + + + | Colorectal Cancer | | 04/01/2015 | | | Screening | 5 | | | | (Colonoscopy) | | | | + + + + + Results Not on filefrom Last 3 Months Insurance +-------+--------+ +------+ +---------+ | Payer | Benefi | Subscriber | Type | Phone | Address | | | t Plan | ID | | | | | | / | | | | | | | Group | | | | | +-------+--------+ +------+ +---------+ | CIGNA | CIGNA | [id number] | PPO | [phone] | | | | PPO | | | [phone] | | +-------+--------+ +------+ +---------+ + +--------+ +--------+ + + | Guarantor Name | Accoun | Relation to | Date | Phone | Billing Address | | | t Type | Patient | of | | | | | | | | | | + +--------+ +--------+ + + | DANIA GOMEZ | Person | Self [birth year] Home: | [address] | | | al/Fam | | 1960 | [phone] [place] | | | nat | | | [phone] | [address] | + +--------+ +--------+ + +
--- OUTSIDE RECORDS SUMMARY | ~2018-01-09 | XMS | Encounter Summary ---
Demographics + + + | Address | [address] | | | [place] [address] | + + + | Home Phone | | + + + | Preferred Language | Unknown | + + + | Marital Status | | + + + | Jain Affiliation | 1038 | + + + | Race | Unknown | + + + | Ethnic Group | Unknown | + + + Author + + + | Author | [facility] | | | and [place] | + + + | Organization | [facility] | | | and [place] | + + + | Address | Unknown | + + + | Phone | Unavailable | + + + Support + + + + + | Name | Relationship | Address | Phone | + + + + + | Madeline Gomez | ECON | [address] | | | | | [place] | | | | | [address] | | + + + + + Care Team Providers + +------+ + | Care Senior Administrative Assistant Name | Role | Phone | + +------+ + | Kelvin Amaya PCP | | | MD | | | + +------+ + Encounter Details +--------+ + + + + | Date | Type | Department | Care Team | Description | +--------+ + + + + | 01/08/ | Abstract | [facility] | Christine Dubose, | | | 2018 | | [facility] [address] | | | | | [address] | | | | | | [place] [address] | | | | | | [phone] | | | +--------+ + + + + Social History + + + [...] on file | | + + + as of this encounter Plan of Treatment +--------+ + + + + | Date | Type | Specialty | Care Team | Description | +--------+ + + + + | 01/13/ | Appointment | Radiation Oncology | | | | 2017 | | | | | +--------+ + + + + | 01/13/ | Appointment | Radiation Oncology | Ivan Barakat DO | | | 2017 | | | [address] | | | | | | [place] | | | | | | [id number] | | | | | | | | +--------+ + + + + | 01/13/ | Hospital | Oncology | [facility], | | | 2017 | Encounter | | Luigi Clarke MD [address] | | | | | [address] | | | | | | [place] [address] | | | | | | [phone] | | | | | | | | +--------+ + + + + as of this encounter Visit Diagnoses Not on filein this encounter"
[~2018-01-09 09:00] MED LIST changes: +PRILOSEC OTC20 MG PO
--- NOTE | 2018-01-09 12:22 | NUR ---
01/09/18 1222 Nichol Quintanilla 1206-PATIENT ARRIVED TO PACU ON 10L MASK O2 SAT 98% PATIENT REACTIVE TO VOICE OPENING EYES. SR. DRESSING TO LEFT CHEST CDI. J TUBE DRESSING CDI. 1213-XRAY AT BEDSIDE HOB ELEVATED PATIENT REPORTS NAUSEA. 1215-PATIENT HAD 200MLS RED EMESIS MEDICATED PER EMAR WITH 6.25 MG PHENERGAN IVP. PATIENT WEANED TO RA O2 SAT 96% AWAKE. DR JOSHI AT BEDSIDE AND UPDATED ON EMESIS. PLAN FOR PATIENT TO STAY OVERNIGHT WILL LET ROUNDER HAND KNOW.
--- NOTE | 2018-01-09 13:23 | NUR ---
RECIEVED PT TO FLOOR VIA STRETCHER. PT IS A/O. AT BEDSIDE. REOPRTS PAIN 4/10 IN ESOPHAGUS. REPORTS TOLERABLE NUMBER. PT REOPRTS NO N/V AT THIS TIME. CPOX PLACED. SATURATION 95% ON RA AND HR 72. LUNGS CLEAR, BOWEL TONES HYPOACTIVE. DRESSING ON LL ABDOMEN AND SHAE SHOLDER IS C/D/I. ORIENTED TO ROOM. CALL LIGHT IN REACH. WATER PROVIDED. DENIES FURTHER NEEDS. SCD'S ON/.
--- NOTE | 2018-01-09 14:15 | NUR ---
VS TAKEN AND CHARTED. PT REPORTS PAIN SAME. NO N/V AT THIS TIME. SBA TO BATHROOM. REPORTED NO LIGHTHEADEDNESS. VOIDED 500ML. BACK TO BED. CALL LIGHT IN REACH. SCD'S, FLUIDS INFUSING AT CORRECT RATE. DENIES FURTHER NEEDS.
--- NOTE | 2018-01-09 14:29 | NUR ---
PT CAUGHT MY EYE, WAS LAYING IN BED, ALERT AND RESPONSIVE TO ME. HE SAID HIS CANCER IS BACK-HE BEAT IT ONCE AND IS READY TO ATTACK IT AGAIN. PRESENTING A POSITIVE ATTITUDE. HE IS A MAN OF [place], SHARED SCRIPTURE WITH HIM. EXTENDED A BLESSING, WILL FOLLOW NEEDED
--- NOTE | 2018-01-09 15:19 | NUR ---
VS TAKEN AND WNL. REPORTS PAIN 3/[address] SCD'S ON. FLUIDS AT 85ML/HR. REPORTS NO N/V. SMALL AMOUNT OF DRAINAGE ON RUQ. DRESSING INTACT. DRESSING C/D/I ON SHAE SHOLDER. CALL LIGHT IN REACH. DENIES FURTHER NEEDS.
--- NOTE | 2018-01-09 17:37 | NUR ---
ASPERATED 2MLS CLEAR GASTRIC CONTENT. PT TOLERATED WELL. DENIES N/V. GAVE 1 CAN ENSURE VIA J TUBE. TOLERATED WELL. FLUSHED WITH 50ML TAP WATER. CALL LIGHT IN REACH DENIES FURTHER NEEDS.
--- NOTE | 2018-01-09 18:22 | NUR ---
pt is sitting up in bed resting safely with call light in reach. pt asked for more broth.
--- NOTE | 2018-01-09 18:45 | NUR ---
OBS PT FOR THE NIGHT. PEG TUBE AND PORT A CATH PLACED TODAY. NO N/V. FLUSH PEG TUBE TID ALONG WITH ENSURE FEEDING.S PT IS CLEAR LIQUIDS. 07/27 DOUGLAS. PLAN FOR DC TOMORROW. D5LR @ 85. DRESSINGS C/D/I. SMALL AMOUNT OF OLD DRAINAGE.
--- NOTE | 2018-01-09 19:15 | NUR ---
Shift report received. Patient resting in bed. family at bedside. Denies needs.
--- NOTE | 2018-01-09 21:41 | NUR ---
IN ROOM TO ADMIN PT. MEDS. SHIFT ASSESSMENT COMPLETE. PT RESTING IN BED COMFORTABLY. PT C/O PAIN RELATED TO ABD INCISION 09/26. PT GIVEN PRN MOTRIN PER EMAR. PT MENTIONED HE WAS NOT INTERESTED IN MORPHINE FOR PAIN RELIEF. PT EDUCATED ON MEDS REGARDING ADDICTION AND HIS PREVIOUS EXPOSURE TO PAIN MEDS. PT'S J TUBE FLUSHED WITH 20 MLS OF NS, TOLERATED WELL. PT EDUCATED ON PROCEDURE AND PT DEMONSTRATED THE PROCEDURE BACK. QUESTIONS ANSWERED RELATED TO J TUBE. PT AOX3, HEART SOUNDS HEARD, LS CLEAR. IV WNL. PT DENIED ANY TENDERNESS WITH PALPATION OF ABDOMEN. DESCRIBED PAIN GENERALIZED TO EPIGASTRIC/ABDOMINAL AREA WITH A DULL ACHE. PT'S ABDOMINAL DRESSING HAS SMALL RED DRAINAGE VISIBLE. PORTACATH DRESSING DRY AND INTACT. NO FURTHER REQUESTS AT THIS TIME. SCD'S IN PLACE. CALL LIGHT WITHIN REACH. BED IN LOW POSITION.
--- NOTE | 2018-01-10 00:09 | NUR ---
HELPED PT TO THE BATHROOM AND BACK TO BED. BEDSIDE TABLE AND CALL LIGHT WITHIN REACH. PT NEEDS NOTHING AT THIS TIME.
--- NOTE | 2018-01-10 02:05 | NUR ---
IN ROOM FOR PT'S VITAL SIGNS. PT RESTING IN BED. PT STATES THAT HE IS "DEFINITELY STARTING TO FEEL SOME PAIN NEAR MY STOMACH". DESCRIBES PAIN A 6/10, "WORSE THAN BEFORE". PT GIVEN PRN IV MORPHINE PER EMAR. TOLERATED WELL. NO FURTHER REQUESTS. CALL LIGHT WITHIN REACH. BED IN LOW POSITION. SCD'S IN PLACE.
--- NOTE | 2018-01-10 03:28 | NUR ---
IN ROOM TO ASSIST PT TO BATHROOM. PT STEADY ON FEET, NO DIZZINESS OR LIGHT HEADEDNESS. PT AMBULATED WITH 1 PERSON SBA. PT C/O 11/26 PAIN IN EPIGASTRIC/ABOMINAL PAIN RELATED TO MOVEMENT. PT ASKED IF HE CAN RECIEVE ANY MORE PAIN MEDICATION. PT GIVEN 4 MG PRN IV MORPHINE PER EMAR . PT TOLERATED WELL. NO FURTHER REQUESTS. CALL LIGHT WITHIN REACH. SCD'S IN PLACE. BED IN LOW POSITION.
--- NOTE | 2018-01-10 05:46 | NUR ---
PT REMAINS STABLE. VS STABLE. PEG TUBE AND PORT A CATH PLACED TODAY. NO N/V THROUGHOUT SHIFT. PEG TUBE FLUSHED WITH 20 MLS NS. PT RECIEVING CLEAR LIQUIDS. PT REPORTED 5/10 PAIN EARLY IN SHIFT R/T PT'S ABDOMEN AND SURGICAL SITE. PT THEN GIVEN 2 MG MORPHIN IV PRN PER EMAR AT 0211. PT TOLERATED WELL. PT AMBULATING WELL WITH 1 PERSON SBA. PT ON CONTINUOUS PULSE OX. SURGICAL SITE HAS SMALL AMOUNT OF RED DRAINAGE AROUND BANDAGE ON ABDOMEN. PORTACATH BANDAGE REMAINS DRY AND INTACT.
--- NOTE | 2018-01-10 06:05 | NUR ---
PATIENT REPORTS PAIN AT J TUBE SITE 11/26. PRN MORPHINE PROVIDED. EDUCATED PATIENT ON PAIN MANAGEMENT AND OFFERED ICE PACK, WHICH HE DECLINED. MORNING MEDS PROVIDED PER ORDER. IV FLUIDS INFUSING, SITE WNL. ABD MILDLY DISTENDED AND TENDER. SMALL AMOUNT OF SHADOWING ON J TUBE MEPILEX, NO NEW DRAINAGE ON GAUZE. FRESH WATER AND BROTH PROVIDED PER REQUEST. NO NAUSEA.
--- NOTE | 2018-01-10 06:34 | NUR ---
ICE PACK GIVEN PER PT REQUEST.
--- NOTE | 2018-01-10 07:30 | NUR ---
REPORT RECEIVED AT BEDSIDE. PT IN CHAIR,. PAIN 08/27. DRESSING C/D/I. DENIES N/V. DENIES FURHTER NEEDS.
--- NOTE | 2018-01-10 08:04 | NUR ---
PATIENT RESTING IN BED, EATING BREAKFAST. PATIENT WASHED HANDS AND FACE WITH WARM WASH CLOTH AND REQUESTED TO KEEP WARM WASH CLOTH NEARBY FOR FUTURE USE. PATIENT SET UP IN BATHROOM FOR ORAL CARE. CALL LIGHT IN REACH. NO OTHER NEEDS AT THIS TIME.
[2018-01-10] MEDS ORDERED: HYCET 7.5 MG-3473 ML PT (10:11)
--- NOTE | 2018-01-10 10:20 | NUR ---
PT OOB BED TO BATHROOM. EDUCATION ON PEG TUBE USE. PT ABLE TO DEMINSTRATE FLUSH. FLUIDS DC'D. PT GETTING DRESSING.CALL LIGHT IN REACH.
--- NOTE | 2018-01-10 10:51 | NUR ---
MED REC COMPLETE
--- NOTE | 2018-01-11 22:04 | OR ---
[facility] [address], [place] [address] Signed DATE OF OPERATION: 01/09/2018 SURGEON: Geoffrey Joshi MD PREOPERATIVE DIAGNOSES: 1. 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 2. History of lymphoma (remission). POSTOPERATIVE DIAGNOSES: 1. 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 2. History of lymphoma (remission). PROCEDURES: 1. Left subclavian Bard port catheter placement (Port-A-Cath device). 2. Surgeon-directed fluoroscopy. 3. Ari gastrostomy 24-Cape Verdean REYNA tube. ANESTHESIA: General endotracheal; Geoffrey Walker CRNA and local 20 mL of 0.25% Marcaine with epinephrine. INDICATION: This 57-year-old white man is a patient of Dr. Amaya as well as Dr. Hassan. He has in the past suffered intraabdominal lymphoma, having undergone chemotherapy under the direction of Dr. Hassan as well as radiation therapy I believe and enjoyed a durable remission from it. He recently was seen by me for dysphagia. Upper endoscopy was performed, which showed extensive esophageal tumor extending from the GE junction more proximally. I had hoped this would represent esophageal lymphoma, for which chemotherapy and radiation therapy would be a consideration. However, biopsies do confirm adenocarcinoma. Since his upper endoscopy recently, he has had progressive dysphagia and is unable to tolerate oral intake to any great degree. He is due to see Dr. Hassan, his oncologist later this week. In the hopes of expediting the treatment, I have offered and recommended placement of feeding tube as well as a Port-A-Cath device. The CT scan was performed showed extensive tumor extending the entire length of the esophagus and some perigastric adenopathy, but no evidence of metastatic disease to the liver or carcinomatosis. It is rather improbable that he would be resectable for cure. Electronically Signed By: GEOFFREY JOSHI MD 01/11/18 2204 PATIENT NAME: DANIA STEPHENS OPERATIVE REPORT DATE OF : 58 REPORT #: [id number] PHYSICIAN: GEOFFREY JOSHI MD PCP: CHARLOTTE AMAYA MD REPORT IS CONFIDENTIAL AND NOT TO BE RELEASED WITHOUT AUTHORIZATION [facility] [address] [place] [id number] Signed I have recommended a feeding tube to be of a gastrostomy type, so as to allow for convenience of feeding, not requiring a pump and so forth. I have reviewed this with Dr. Hassan, who agrees. The risks of bleeding, infection, and other unforeseen complications related to both the Port-A-Cath device as well as a feeding gastrostomy have been reviewed with him and his . They understand and wish to proceed. FINDINGS: Left subclavian vein was used for access for Port-A-Cath placement. This was accomplished without problem and good function of catheter was noted. A postprocedure chest x-ray in recovery room shows the tip of the catheter to be in the superior vena cava and no sign of pneumothorax. An open gastrostomy was used rather than a PEG tube due to the tumor burden and wanting to avoid hemorrhage upon drawing through the PEG tube device. Therefore, a Ari gastrostomy was used. Function of the catheter was quite good and was placed in the left upper abdomen. The bulb was in the border between the body and antrum of the stomach. DESCRIPTION OF PROCEDURE: The patient was brought to the operating room, given a general endotracheal anesthetic. Preoperative antibiotic Ancef was given. Sequential compression device stocking was used and heparin subcutaneously administered. Preparation of the body from the angle of the mandible to the symphysis pubis was undertaken with the clipping and ultimately a preparation with a chlorhexidine solution. Sequential compression device stocking was used and heparin subcutaneously administered. After sterile draping, plans were made for Port-A-Cath placement first. Using the Seldinger technique, the left subclavian vein was easily accessed on the first pass showing dark nonpulsatile blood. A flexible J-wire was passed down the needle and needle was removed. A transverse incision was made in the previous site over the left pectoralis. Dissection carried through the subcutaneous tissue with blunt and electrocautery dissection. A pocket was created inferiorly. At the wire site, an incision was made with an #11 blade and dilated and subsequently dilator and peel-away sheath introducer and passed over the wire. The wire and the dilator were removed showing vigorous retrograde nonpulsatile dark blood flow. The previously inspected Groshong-type catheter for the Bard port system was passed down the sheath introducer and stabilized and the sheath removed. Aspiration on the catheter showed dark nonpulsatile blood and easy flushing. Electronically Signed By: GEOFFREY JOSHI MD 01/11/18 2206 PATIENT NAME: DANIA STEPHENS OPERATIVE REPORT DATE OF : 58 REPORT #: [id number] PHYSICIAN: GEOFFREY JOSHI MD PCP: CHARLOTTE AMAYA MD REPORT IS CONFIDENTIAL AND NOT TO BE RELEASED WITHOUT AUTHORIZATION [address] [address] Signed With fluoroscopic control, the catheter was withdrawn to the superior vena cava. Not mentioned previously was using the fluoroscope to confirm the wire in the right heart system after passage into the vein initially. Under fluoroscopic control, the catheter was withdrawn so the tip was in the superior vena cava. The catheter was then delivered to the pocket using the enclosed tunneling device, trimmed to appropriate length and secured to the port device, which had been partially secured to the pectoralis fascia with 2-0 Vicryl suture. The collar was applied per manufacture's instructions. Access of the port device showed easy withdrawal of blood and easy infusion of heparinized saline. This secured more fully to the pectoralis fascia and the pocket closed with interrupted 2-0 Vicryl and a running subcuticular used to secure the skin. An angled Ervin needle was used to access the port percutaneously, aspirating blood freely, and easily infusing heparinized saline. Fluoroscopy was used to confirm the configuration of the catheter, which appeared to be quite optimal. No sign of kinking or other problem. The tip was in the superior vena cava. Steri-Strips were applied to the wound and the lateral neck incision closed with the single Vicryl as well. Steri-Strips were applied as was a Mepilex silver sponge dressing and OpSite. An isolating drape was then applied to the area. Attention was turned toward gastrostomy. A small epigastric incision was made. Dissection carried through the subcutaneous tissue and the midline fascia divided. Intraabdominal inspection was undertaken showing no sign of ascites or carcinomatosis. Within small my able, Intraabdominal examination was more fully undertaken showing a normal gallbladder and liver. There was no sign of palpable or visible lesions of the liver. The lesser sac appeared reasonably normal. Palpation in these lesser sac showed no dominant lymph node. The midportion of the stomach was grasped with Phoenix clamps and elevated. Two separate 0 silk sutures were placed in a pursestring configuration. Central portion of the site was incised with electrocautery and hemostat allowing for entry into the stomach. A 24-C[place] Ver[place]an REYNA tube was passed through a left upper quadrant stab incision in the appropriate area and then passed into the stomach itself. The balloon was inflated. The silk sutures were then secured. Flushing of the catheter showed no leak or other problem. Electronically Signed By: GEOFFREY JOSHI MD 01/11/18 2204 PATIENT NAME: DANIA STEPHENS OPERATIVE REPORT DATE OF : 58 REPORT #: [id number] PHYSICIAN: GEOFFREY JOSHI MD PCP: CHARLOTTE AMAYA MD REPORT IS CONFIDENTIAL AND NOT TO BE RELEASED WITHOUT AUTHORIZATION [facility] [address], [place] [address] Signed The serosa of the stomach was then sewn to the abdominal wall, but the exit site of the tube gently drying the balloon against the abdominal wall. Interrupted 0 silk sutures were used for this purpose as well. The catheter was then flushed once again showing no sign of leakage or other problem. There was no sign of untoward bleeding within the gastric lumen either. Attention was then turned toward closure. The midline fascia was reapproximated with running #1 PDS suture. Subcutaneous tissue irrigated and closed with interrupted 2-0 Vicryl after applying 20 mL of 0.25% Marcaine with epinephrine for local analgesic effect. The skin was then closed with a running subcuticular 3-0 Vicryl. Steri-Strips were applied as was a Mepilex silver sponge dressing. The flange was used to help secure the tube externally, was secured with 2 separate 0 silk ties snugging the catheter appropriately. The patient was ultimately extubated and transferred to recovery room in good condition. In recovery room, the patient had some regurgitation of bloody fluid. I suspect this is more likely related to the esophagus and the stomach itself. A postprocedure chest x-ray was performed showing good position of the tube (intravenous catheter) with no sign of pneumothorax or other issue. The tip was in the superior vena cava. MD KATHI Castillo/POLOL /[id number] cc: MD Charlotte Forde MD Copies: CHATO HASSAN MD Electronically Signed By: GEOFFREY JOSHI MD 01/11/18 2204 PATIENT NAME: DANIA STEPHENS OPERATIVE REPORT DATE OF : 58 REPORT #: [id number] PHYSICIAN: GEOFFREY JOSHI MD PCP: CHARLOTTE AMAYA MD REPORT IS CONFIDENTIAL AND NOT TO BE RELEASED WITHOUT AUTHORIZATION [address] [address] Signed CHARLOTTE AMAYA MD ~ Electronically Signed By: GEOFFREY JOSHI MD 01/11/18 2204 PATIENT NAME: DANIA STEPHENS OPERATIVE REPORT DATE OF : 58 REPORT #: [id number] PHYSICIAN: GEOFFREY JOSHI MD PCP: CHARLOTTE AMAYA MD REPORT IS CONFIDENTIAL AND NOT TO BE RELEASED WITHOUT AUTHORIZATION
--- NOTE | 2018-01-13 07:23 | NUR ---
PT SLEEPING, WILL CHECK BACK AGAIN
== END 2018-01-10 11:48 | disposition home or self-care (01) ==
LOC: DS 09:00 → MS 13:01 → DS 13:02 → MS 13:03
PROVIDERS: ADMIT Surgery
PROC: 02HV33Z Insertion of Infusion Device into Superior Vena Cava, Percutaneous Approach (ICD-10-PCS; 2018-01-09)
PROC: B518ZZA Fluoroscopy of Superior Vena Cava, Guidance (ICD-10-PCS; 2018-01-09)
PROC: 0DH60UZ Insertion of Feeding Device into Stomach, Open Approach (ICD-10-PCS; principal; 2018-01-09 11:00)
PROC: 0JH60WZ Insertion of Totally Implantable Vascular Access Device into Chest Subcutaneous Tissue and Fascia, Open Approach (ICD-10-PCS; 2018-01-09 11:00)
DX: C16.0 Malignant neoplasm of cardia (principal); K21.0 Gastro-esophageal reflux disease with esophagitis; R13.10 Dysphagia, unspecified; I10 Essential (primary) hypertension; Z79.899 Other long term (current) drug therapy; Z87.891 Personal history of nicotine dependence; Z85.72 Personal history of non-Hodgkin lymphomas
CPT/HCPCS: 00532; 71045; 77001; 96372; 96374; 96375; 96376; C1788; G0378; J0330; J0690; J1100; J1644; J1885; J2250; J2270; J2405; J2550; J2704; J2765; J3010; J7120

== ENCOUNTER 2018-11-03 07:49 | Observation (INO) | payer SELFPAY ==
[~2018-11-03] VITALS: Ht 182.9 cm; Wt 134.8 kg
[~2018-11-03 07:49] MED LIST changes: +ADVIL200 MG PO; +ATIVAN1 MG PO; +HYCET 7.5 MG-3473 ML PT
--- OUTSIDE RECORDS SUMMARY | 2018-11-03 07:52 | XMS ---
PreManage Notification: DANIA STEPHENS Security Rcis Events No recent Security Events currently on file CRITERIA MET - [facility] PROVIDERS Min Hernandez Treatment Current PHONE: Unknown Robert Washington Misti Current Orthopedic Surgery \T\ Fracture Clinic PHONE: Unknown Elisha has no Care Guidelines for this patient. Aicha VISIT COUNT (12 MO.) Pamela Howard TOTAL 1 NOTE: Visits indicate total known visits. ED/UCC VISIT TRACKING (12 MO.) 11/03/2018 07:50 DIANNA Elizabeth OR TYPE: Emergency COMPLAINT: - CHEST PAIN INPATIENT VISIT TRACKING (12 MO.) 01/09/2018 13:03 DIANNA Elizabeth OR TYPE: Observation COMPLAINT: - PORT-A-CATH JEJUNAL FEEDING TUBE PLACEMNT OIP DIAGNOSES: - Personal history of nicotine dependence - Personal history of non-Hodgkin lymphomas - Gastro-esophageal reflux disease with esophagitis - Malignant neoplasm of cardia - Dysphagia, unspecified - Other superintendent container terminal (current) drug therapy - Essential (primary) hypertension [email or web address]
[2018-11-03] MEDS ORDERED: ALBUTEROL2.5 MG/3 M INH (07:57)
--- NOTE | 2018-11-03 13:30 | NUR ---
PT ADMITTED FROM ED FOR SOB AND PAIN CONTROL. PT STATES THAT HE HAS SOB ON EXERTION THAT TAKES HIM APPROXIMATELY 15 MINUTES TO RECOVER FROM. PT HAS CANCER IN ESOPHAGUS THAT HAS SPREAD TO BONES AND LIVER. PT IS HERE TO SET UP HOSPICE FOR AT HOME. PT CURRENTLY 96% ON RA AND PORT THAT HAS BEEN ACCESSED. PT AT BEDSIDE. ASSESSMENT COMPLETE AND MEDICATIONS GIVEN. CALL LIGHT WITHIN REACH. NO FURTHER NEEDS/CONCERNS AT THIS TIME.
--- NOTE | 2018-11-03 16:33 | NUR ---
PT STATES PAIN IS 6/10 AND REQUESTING SOMETHING FOR PAIN AND NAUSEA. MORPHINE AND ZOFRAN GIVEN WELL IV MAGNESIUM STARTED. PT RESTING QUIETLY IN BED. NO OTHER NEEDS AT THIS TIME.
--- NOTE | 2018-11-03 16:34 | NUR ---
CALLED [facility] TO SEE WHAT WAS NEEDED TO ESTABLISH CARE, I AM FAXING THEM THE DEMOGRAPHICS, LABS, H&P, AND PATHOLOGY. THE PLAN IS TO ADMIT TOMORROW WITH HOSPICE. DR MARLOW WILL LOOK OVER THE INFORMATION AND THEY WILL CALL US TOMORROW.
--- NOTE | 2018-11-03 17:24 | NUR ---
PT CONTINUES TO COMPLAIN OF NAUSEA, GIVEN 10 MG IV COMPAZINE PER ORDER. PT ASSISTED TO ORDER DINNER, WANTS TO TRY SOUP. PT DENIES OTHER NEEDS AT THIS TIME.
--- NOTE | 2018-11-03 18:21 | NUR ---
IV MAGNESIUM INFUSION COMPLETED, IV POTASSIUM INFUSION BEGAN. PT STATES COMPAZINE WAS EFEFCTIVE, DENIES NAUSEA, ATE DINNER, REQUESTING JELLO. PT DENIES OTHER NEEDS AT THIS TIME.
--- NOTE | 2018-11-03 19:10 | NUR ---
BEDSIDE REPORT RECEIVED FROM JOSE LUIS VIVEROS. PT RESTING IN BED, AT BEDSIDE. PT RATES PAIN 2/10 IN ABDOMEN. IV KCL INFUSING WNL. PT DENIES ANY NEEDS AT THIS TIME. CALL LIGHT IN REACH.
--- NOTE | 2018-11-03 21:20 | NUR ---
CALL LIGHT ANSWERED, PT C/O 4-09/26 PAIN IN ESOPHAGUS/ABD. PRN PAIN MEDICATION ADMINISTERED. ORANGE JUICE PROVIDED. PT VISITING IN ROOM WITH MIG WELDER AND FAMILY. CALL LIGHT IN REACH.
--- NOTE | 2018-11-03 21:45 | NUR ---
IN PT ROOM, ASSESSMENT COMPLETE. PT RATES PAIN 2/10 AT THIS TIME, STATES "THAT MORPHINE REALLY WORKED". PT DENIES SOB. LUNG SOUNDS CLEAR THROUGHOUT ALL LOBES. RESTING IN BED ON PHONE. CALL LIGHT IN REACH.
--- NOTE | 2018-11-03 22:42 | NUR ---
PORT HEPARIN LOCKED AT THIS TIME, GOOD BLOOD RETURN. PT RESTING IN BED WATCHING TV. DENIES ANY NEEDS AT THIS TIME. CALL LIGHT IN REACH.
--- NOTE | 2018-11-04 01:41 | NUR ---
CHECKED ON PT. RESTING IN BED AWAKE. DENIES NEED FOR PRN PAIN MEDICATION AT THIS TIME. PT WITH OCCASIONAL COUGH. NO REQUESTS AT THIS TIME. CALL LIGHT IN REACH.
--- NOTE | 2018-11-04 02:56 | NUR ---
CALL LIGHT ANSWERED. PRN PAIN MEDICATION ADMINISTERED FOR 4-5/10 PAIN WITH ORANGE JUICE. PT TOLERATED WELL. PT STATES "HARDLY ANY PAIN". MORNING ASSESSMENT COMPLETE. CALL LIGHT IN REACH. LIGHTS OFF IN ROOM.
--- NOTE | 2018-11-04 05:15 | NUR ---
PT HAS DENIED NAUSEA THROUGHOUT SHIFT. PRN MORPHINE SL X 2 FOR PAIN MANAGEMENT. LUNG SOUNDS CLEAR THROUGHOUT ALL LOBES, PT ON RA. PORT HEPARIN LOCKED. PT USING CALL LIGHT APPROPRIATELY. INDEPENDENT IN ROOM.
--- NOTE | 2018-11-04 05:45 | NUR ---
PT APPEARS TO BE SLEEPING, SNORING. EYES CLOSED. BREATHING NON-LABORED.
--- NOTE | 2018-11-04 09:38 | NUR ---
CONSULT RECEIVED FOR CHF DIET EDUCATION. THIS CONSULT IS NOT APPROPRIATE AT THIS TIME DUE TO PATIENT GOING ON HOSPICE FOR ESOPHAGEAL CANCER. PATIENT IS ON A REGULAR DIET CURRENTLY.
--- NOTE | 2018-11-04 09:46 | NUR ---
PT SLEEPING AT THIS TIME. NO APPARENT DISTRESS, WILL CHECK BACK
[2018-11-04] MEDS ORDERED: LEVAQUIN750 MG PO (10:30)
[2018-11-04] MEDS ORDERED: MORPHINE S100 MG/5 M SL (10:31)
--- NOTE | 2018-11-04 10:35 | NUR ---
TALKING WITH PT, I WAS CALLED [facility]OSPICE WAS ON THE PHONE AND I TALKED WITH ARACELIS AMAYA. SHE STATED THEY HAD BEEN TRYING TO GET A HOLD OF HIS BUT TO NO AVAIL. I EXPLAINED TO HER THAT SHE WORKS FROM 7 TO 530, BUT ALSO MENTIONED THAT SHE IS COMING TO TAKE THE PT HOME TODAY AND WOULD BE HERE FOR ME THE SET UP A TIME FOR TOMORROW FOR ARACELIS TO VISIT WITH PT AND HIS KEISHA. SHE STATED THAT WAS GREAT. TOLD HER I WOULD CALL HER BACK WHEN I HAD A TIME FOR HER TO MEET WITH THEM.
[2018-11-04] MEDS ORDERED: FENTANYL1 EAC4 TD (10:39)
[2018-11-04] MEDS ORDERED: PROCHLORPERAZIN10 MG PO (10:41)
[2018-11-04] MEDS ORDERED: PREDNISONE20 MG PO (10:46)
--- NOTE | 2018-11-04 12:02 | NUR ---
PATIENT PORT DEACCESSED, BANDAID PLACED OVER ACCESS POINT. PATIENT GETTING DRESSED. IN ROOM, WAITING FOR PHARMACY TO FILL SCRIPT. PROVIDED PATIENT WITH DISCHARGE EDUCATION. ANSWERED QUESITONS AND CONCERNS. ADMINISTERED 10MG SL MORPHINE FOR PAIN MANAGEMENT.
--- NOTE | 2018-11-04 12:08 | NUR ---
TALKED WITH THE , WHO IS AT THE BEDSIDE, WE DISCUSSED THE INFO THAT I HAD GONE OVER WITH HER ALREADY, SHE STATED UNDERSTANDING THAT IF AT SOME POINT SHE NEEDS ANYTHING, GAVE HER MY BUSINESS CARD, TOLD HER SHE COULD CALL ANY TIME DAY OR NITE. IT IS A CONFIDENTIAL VOICE MESSAGE. SHE STATED THAT 1330 WOULD BE THE BEST TIME FOR THEM TO GET TOGETHER ANYWAY. SO I TOLD HER THE HOSPICE NURSE WOULD BE THERE TO TALK WITH THEM SO THEY ARE ABLE TO MAKE THEIR MOST INFORMED DECISION.
--- NOTE | 2018-11-04 14:04 | NUR ---
CALLED AND TALKED WITH ARACELIS OVER AT [facility] AND TOLD HER, THE PT HAD SAID THAT 1330 WOULD BE A GOOD TIME. SHE STATED THAT WOULD BE WONDERFUL.
--- NOTE | 2018-11-04 14:12 | NUR ---
PT IS DRESSED, LAYING IN BED WITH HIS AT . THEY STATED THAT THEY ARE READY TO GO, JUST WAITING FOR PHARMACY. PT APPEARED TO BE FEELING BETTER, THANKED ME FOR COMING IN. EXTENDED A BLESSING. WILL FOLLOW NEEDED
--- NOTE | 2018-11-04 16:03 | EKG ---
[facility] [address] [facility] [place], [place] [address] Signed Normal sinus rhythm Left axis deviation Inferior infarct , age undetermined Abnormal ECG No previous ECGs available Confirmed by ELMA JAQUEZ DO ([id number]) on 11/04/2018 4:03:44 PM Electronically Signed By: ELMA JAQUEZ DO 11/04/18 1603 PATIENT NAME: DANIA STEPHENS Electrocardiogram DATE OF : 58 PHYSICIAN: ELMA JAQUEZ DO REPORT #: [id number] REPORT IS CONFIDENTIAL AND NOT TO BE RELEASED WITHOUT AUTHORIZATION
== END 2018-11-04 12:37 | disposition home or self-care (01) ==
LOC: ED 07:49 → MS 07:51
PROVIDERS: ADMIT Student in an Organized Health Care Education/Training Program
DX: R06.02 Shortness of breath (principal); R91.8 Other nonspecific abnormal finding of lung field; M10.9 Gout, unspecified; K21.9 Gastro-esophageal reflux disease without esophagitis; C15.9 Malignant neoplasm of esophagus, unspecified; C79.51 Secondary malignant neoplasm of bone; G89.3 Neoplasm related pain (acute) (chronic); M89.8X9 Other specified disorders of bone, unspecified site; C85.10 Unspecified B-cell lymphoma, unspecified site; Z66 Do not resuscitate; Z51.5 Encounter for palliative care; Z87.891 Personal history of nicotine dependence; Z79.891 Long term (current) use of opiate analgesic; Z79.899 Other long term (current) drug therapy
CPT/HCPCS: 71045; 80053; 83735; 83880; 84484; 85025; 93005; 93010; 96374; 96375; 96376; 99285-25; G0378; J0780; J1170; J1956; J2405; J2930; J3475; J3480; J7512